=== PATIENT | female | born 1950 | race Caucasian/White ===

== ENCOUNTER 2022-04-21 13:10 | Emergency (ER) | payer OTHER, MEDICARE ==
[2022-04-21] VITALS (15 sets, daily range): BP systolic 95–141; BP diastolic 47–85
[2022-04-21] MEDS ORDERED: ELIQUIS5 MG PO (13:33)
[2022-04-21] MEDS ORDERED: PROMACTA PO (13:36)
[2022-04-21 14:34] LABS: IMMATURE GRANULOCYTES 0.3 % (0.0-5.0); MEAN CELL VOLUME 96.5 fL CALC (80.0-100.0); MEAN CORPUSCULAR HGB 30.6 pG CALC (26.0-32.0); MEAN CORPUSCULAR HGB CONC 31.7 g/dL CAL (32.0-36.0); NEUT# 10.02 thou/uL (2.00-7.15); RED BLOOD COUNT 3.73 mill/uL (4.20-5.60); RED CELL DISTRI WIDTH 12.7 % (11.5-15.5)
[2022-04-21 14:50] LABS: HEMOGLOBIN 11.4 g/dl (12.0-16.0)
[2022-04-21 15:03] LABS: ALBUMIN 3.7 g/dL (3.2-5.0); BUN 26 mg/dL (8-23); BUN/CREATININE RATIO 26 (12-20 (CALC)); CARBON DIOXIDE 24 mmol/l (22-30); CHLORIDE 101 mmol/l (95-108); GFR FOR AFR.AMER. > 60 ML/MIN (>=60 (CALC)); GFR OTHER RACES 55 ML/MIN (>=60 (CALC)); SGOT/AST 27 u/l (9-36); SODIUM 137 mmol/l (137-146); TOTAL PROTEIN 6.2 g/dL (6.3-8.2)
[2022-04-21 15:17] LABS: ANION GAP 16 (6-22 (CALC))
[2022-04-21 15:18] LABS: ALKALINE PHOSPHATASE 126 u/l (38-126); BILIRUBIN, TOTAL 1.2 mg/dL (0.0-1.4)
[2022-04-21 17:01] LABS: HEMATOCRIT 33.9 % (37.0-47.0); HEMOGLOBIN 11.2 g/dl (12.0-16.0)
[2022-04-21] MEDS ORDERED: VIBRAMYCIN100 M2 PO (20:01)
[2022-04-23 20:10] VITALS: BP 95/54
== END 2022-04-23 20:15 | disposition home or self-care (01) | DRG 603 ==
LOC: ED 13:10
PROVIDERS: Nurse Practitioner
DX: L03.116 Cellulitis of left lower limb (principal); F17.210 Nicotine dependence, cigarettes, uncomplicated
CPT/HCPCS: Q9967

== ENCOUNTER 2022-05-21 01:02 | Emergency (ER) | payer MEDICARE, OTHER ==
[~2022-05-21 01:02] MED LIST: ELIQUIS5 MG PO; PROMACTA PO; VIBRAMYCIN100 M2 PO
[2022-05-21 01:27] VITALS: BP 123/88
[2022-05-21 01:31] VITALS: BP 120/64
[2022-05-21 01:46] VITALS: BP 96/54
[2022-05-21 02:01] VITALS: BP 116/61
[2022-05-21 03:30] LABS: BASO% 0.5 % (0-3); EOS% 0.1 % (0-8); HEMATOCRIT 37.9 % (37.0-47.0); HEMOGLOBIN 12.4 g/dl (12.0-16.0); IMMATURE GRANULOCYTES 0.1 % (0.0-5.0); LYMPH% 11.1 % (15-41); MEAN CORPUSCULAR HGB 32.4 pG CALC (26.0-32.0); MEAN CORPUSCULAR HGB CONC 32.7 g/dL CAL (32.0-36.0); MONO% 8.2 % (2-13); NEUT# 7.82 thou/uL (2.00-7.15); RED BLOOD COUNT 3.83 mill/uL (4.20-5.60); RED CELL DISTRI WIDTH 15.8 % (11.5-15.5)
[2022-05-21 03:40] LABS: ALBUMIN 4.1 g/dL (3.2-5.0); ALKALINE PHOSPHATASE 145 u/l (38-126); ANION GAP 11 (6-22 (CALC)); BILIRUBIN, TOTAL 0.8 mg/dL (0.0-1.4); BUN 15 mg/dL (8-23); BUN/CREATININE RATIO 16 (12-20 (CALC)); CARBON DIOXIDE 23 mmol/l (22-30); CHLORIDE 107 mmol/l (95-108); CREATININE 0.9 mg/dL (0.5-1.0); GFR FOR AFR.AMER. > 60 ML/MIN (>=60 (CALC)); GFR OTHER RACES > 60 ML/MIN (>=60 (CALC)); POTASSIUM 4.2 mmol/l (3.5-5.1); SGOT/AST 27 u/l (9-36); SODIUM 136 mmol/l (137-146); TOTAL PROTEIN 7.3 g/dL (6.3-8.2)
[2022-05-21] MEDS ORDERED: ULTRAM50 MG PO (04:11)
[2022-05-21] MEDS ORDERED: BACTRIM DS1 TAB PO (04:11)
[2022-05-21] MEDS ORDERED: KEFLEX500 MG PO (04:11)
[2022-05-21 04:21] VITALS: BP 116/61
== END 2022-05-21 04:42 | disposition home or self-care (01) ==
LOC: ED 01:02
PROVIDERS: Emergency Medicine
DX: L03.116 Cellulitis of left lower limb (principal); F17.200 Nicotine dependence, unspecified, uncomplicated; Z86.711 Personal history of pulmonary embolism; M79.605 Pain in left leg; M79.89 Other specified soft tissue disorders

== ENCOUNTER 2022-06-23 16:25 | Emergency (ER) | payer MEDICARE, OTHER ==
[~2022-06-23] VITALS: Ht 160 cm; Wt 108.9 kg
[~2022-06-23 16:25] MED LIST changes: +BACTRIM DS1 TAB PO; +KEFLEX500 MG PO; +ULTRAM50 MG PO
[2022-06-23 18:14] VITALS: BP 132/66
[2022-06-23 18:45] LABS: BASO% 0.4 % (0-3); EOS% 0.2 % (0-8); HEMATOCRIT 40.4 % (37.0-47.0); HEMOGLOBIN 12.6 g/dl (12.0-16.0); IMMATURE GRANULOCYTES 0.2 % (0.0-5.0); LYMPH% 12.3 % (15-41); MEAN CORPUSCULAR HGB 29.3 pG CALC (26.0-32.0); MEAN CORPUSCULAR HGB CONC 31.2 g/dL CAL (32.0-36.0); MONO% 7.1 % (2-13); NEUT# 10.21 thou/uL (2.00-7.15); NEUT% 79.8 % (42-76); RED BLOOD COUNT 4.3 mill/uL (4.20-5.60); RED CELL DISTRI WIDTH 14.3 % (11.5-15.5)
[2022-06-23 19:00] LABS: ALBUMIN 4.5 g/dL (3.2-5.0); ALKALINE PHOSPHATASE 97 u/l (38-126); ANION GAP 12 (6-22 (CALC)); BILIRUBIN, TOTAL 1.2 mg/dL (0.02-1.3); BUN 14 mg/dL (8-23); BUN/CREATININE RATIO 19 (12-20 (CALC)); C-REACTIVE PROTEIN 7.9 mg/dL (0-0.9); CARBON DIOXIDE 27 mmol/l (22-30); CHLORIDE 101 mmol/l (95-108); CREATININE 0.7 mg/dL (0.5-1.0); GFR FOR AFR.AMER. > 60 ML/MIN (>=60 (CALC)); GFR OTHER RACES > 60 ML/MIN (>=60 (CALC)); POTASSIUM 4.6 mmol/l (3.5-5.1); PROTHROMBIN TIME 10.3 SECONDS (9.0-12.5); SGOT/AST 42 u/l (9-36); SODIUM 136 mmol/l (137-146); TOTAL PROTEIN 8.1 g/dL (6.3-8.2)
[2022-06-23] MEDS ORDERED: PREDNISONE20 MG PO (19:29)
[2022-06-23] MEDS ORDERED: VIBRAMYCIN100 M2 PO (19:29)
[2022-06-23 19:55] VITALS: BP 132/66
== END 2022-06-23 19:58 | disposition home or self-care (01) ==
LOC: ED 16:25
PROVIDERS: Nurse Practitioner
DX: L03.115 Cellulitis of right lower limb (principal); M25.571 Pain in right ankle and joints of right foot; F17.200 Nicotine dependence, unspecified, uncomplicated; Z86.711 Personal history of pulmonary embolism; Z79.01 Long term (current) use of anticoagulants

== ENCOUNTER 2022-09-26 16:28 | Emergency (ER) | payer MEDICARE, OTHER ==
[~2022-09-26] VITALS: Ht 160 cm; Wt 102.0 kg
[~2022-09-26 16:28] MED LIST changes: +PREDNISONE20 MG PO
[2022-09-26 17:34] VITALS: BP 147/95
[2022-09-26 17:46] VITALS: BP 136/117
[2022-09-26 18:00] VITALS: BP 138/77
[2022-09-26 18:16] VITALS: BP 152/86
[2022-09-26] MEDS ORDERED: TRAMADOL HYDROC50 M1 PO (18:30)
[2022-09-26] MEDS ORDERED: ZOFRAN4 MG/TAB PO (18:30)
[2022-09-26] MEDS ORDERED: FLEXERIL5 M1 PO (18:32)
[2022-09-26 19:02] VITALS: BP 152/86
== END 2022-09-26 19:38 | disposition home or self-care (01) ==
LOC: ED 16:28
DX: M25.511 Pain in right shoulder (principal); Z86.711 Personal history of pulmonary embolism

== ENCOUNTER 2022-11-29 00:48 | Emergency (ER) | payer MEDICARE, OTHER ==
[~2022-11-29] VITALS: Ht 160 cm; Wt 97.0 kg
[~2022-11-29 00:48] MED LIST changes: +FLEXERIL5 M1 PO; +TRAMADOL HYDROC50 M1 PO; +ZOFRAN4 MG/TAB PO
[2022-11-29 00:56] VITALS: BP 117/57
[2022-11-29 01:00] VITALS: BP 119/61
[2022-11-29 01:22] VITALS: BP 117/67
== END 2022-11-29 01:49 | disposition home or self-care (01) ==
LOC: ED 00:48
DX: B37.0 Candidal stomatitis (principal); Z86.73 Personal history of transient ischemic attack (TIA), and cerebral infarction without residual deficits; Z86.711 Personal history of pulmonary embolism; Z87.891 Personal history of nicotine dependence